=== PATIENT | male | born 1955 | race Caucasian/White ===

== ENCOUNTER → 2018-01-04 10:58 | Outpatient (CLI) | payer OTHER, SELFPAY ==
--- NOTE | 2018-01-04 | DI.NM.S_ITS ---
PROCEDURE: NM BONE 3 PHASE RADIOPHARMACEUTICAL: 20.9 mCi Tc-99m MDP IV. INDICATIONS: Presence of right artificial knee joint TECHNIQUE: Multiple bone scintigrams were obtained after intravenous injection of Tc-99m MDP, including flow, blood pool, and delayed images centered to the region of interest. COMPARISON: None. FINDINGS: The flow and blood pool images demonstrate subtle increased vascular activity to the right knee. There is photopenia in the right knee consistent with prior knee arthroplasty. Delayed images demonstrate foci of increased activity around right knee prosthesis, most pronounced in the medial aspect of titial plateau along the prosthesis and bone interface. Increased uptake in the left knee medial compartment is likely secondary to degenerative joint disease. IMPRESSION: 2. There is ight knee arthroplasty. Subtle increased vascular activity, as well as delayed uptake, is present along the medial aspect of the right knee at the prosthesis and tibial interface. Differential diagnosis include post surgical change versus early prosthesis loosening. Recommend radiographic and clinical correlation. 2. Degenerative joint disease in left knee. Dictated by: Marcie Donald M.D. on 01/04/2018 at 16:53 Approved by: Marcie Donald M.D. on 01/05/2018 at 11:06
== END ==
PROVIDERS: PCP Family Medicine; Visit Provider Specialist/Technologist Athletic Trainer
DX: M17.12 Unilateral primary osteoarthritis, left knee (principal); Z96.651 Presence of right artificial knee joint
CPT/HCPCS: 78315; A9503

== ENCOUNTER → 2020-01-19 11:32 | Outpatient (CLI) | payer OTHER, SELFPAY ==
--- NOTE | 2020-01-19 11:36 | DI.RAD.S_ITS ---
PROCEDURE: XR SHOULDER RT MIN 2V INDICATIONS: right shoulder pain TECHNIQUE: 3 views of the shoulder were acquired. COMPARISON: None. FINDINGS: Bones: No fractures or dislocations. No suspicious bony lesions. Mild degenerative changes present at the acromioclavicular and glenohumeral joints. Visualized ribs appear intact. Soft tissues: No suspicious soft tissue calcifications. IMPRESSION: Mild degenerative change. No acute radiographic findings. If pain persists, followup imaging in 5-7 days is recommended to exclude occult fracture. Dictated by: Namrata Lopez M.D. on 01/19/2020 at 12:18 Approved by: Namrata Lopze M.D. on 01/19/2020 at 12:19
== END ==
PROVIDERS: PCP Family Medicine; Referring Provider Physician Assistant; Visit Provider Physician Assistant
DX: M25.511 Pain in right shoulder (principal)
CPT/HCPCS: 73030

== ENCOUNTER → 2020-02-02 10:13 | Outpatient (CLI) | payer OTHER, SELFPAY ==
--- NOTE | 2020-02-02 | DI.RAD.S_ITS ---
PROCEDURE: XR CERVICAL SPINE 2V OR 3V INDICATIONS: CERVICAL RADICULOPATHY TECHNIQUE: 3 view(s) of the cervical spine were acquired. COMPARISON: None. FINDINGS: Bones: No fractures or dislocations to the C7 level. The lateral masses of C1 appear intact on the odontoid view. No suspicious bony lesions. Quda-qo-ogsvvozs degenerative change including intervertebral disc space narrowing and osteophytosis is present within the mid and lower cervical spine. Soft tissues: No prevertebral soft tissue swelling. IMPRESSION: Degenerative change. No acute radiographic findings. If there is continued pain, followup exam or additional imaging such as MRI or CT could be performed for further assessment. Dictated by: Namrata Lopez M.D. on 02/02/2020 at 14:30 Approved by: Namrata Lopez M.D. on 02/02/2020 at 14:30
== END ==
PROVIDERS: PCP Family Medicine; Referring Provider Family Medicine; Visit Provider Family Medicine
DX: M47.22 Other spondylosis with radiculopathy, cervical region (principal)
CPT/HCPCS: 72040

== ENCOUNTER → 2020-10-15 09:03 | Outpatient (CLI) | payer OTHER, SELFPAY ==
[2020-10-15 17:18] LABS: COVID19 -Nasal RAPID Negative (Negative)
== END ==
PROVIDERS: PCP Family Medicine; Referring Provider Specialist; Visit Provider Specialist
DX: Z20.822 Contact with and (suspected) exposure to COVID-19 (principal)
CPT/HCPCS: 87635; C9803

== ENCOUNTER 2020-10-16 08:27 | Day surgery (SDC) | payer OTHER, SELFPAY ==
[2020-10-16 08:40] VITALS: BMI 27.9
[2020-10-16] MEDS: LACTATED RINGERS 1,000 ML 200 ML IV (08:53)
[2020-10-16 08:56] VITALS: BP 150/88; PULSE 64; RESP 16; TEMP 36.7; O2SAT 97
--- NOTE | 2020-10-16 09:31 | PM.HP.1 ---
History of Present Illness History of Present Illness Date Patient Seen: 10/16/20 Chief complaint: SCREENING COLONOSCOPY Narrative: Patient is a gentleman here for screening colonoscopy. He had a colon resection for diverticulitis performed about 13 years ago. Patient History Medical History Family history of aneurysm Family history of suicide H/O diverticulitis of colon Screening for cholesterol level Screening for colon cancer Screening for diabetes mellitus Screening for prostate cancer Surgical History S/P partial colectomy S/P TKR (total knee replacement) Family & Social History Family History Grandmother Colon cancer Social History: household members spouse Tobacco & Substance use: Smoking Status Never smoker alcohol intake current alcohol intake frequency 0-2 drinks per day Substance Use Type does not use Meds Home Medications and Allergies Home Medications Medication Instructions Recorded Confirmed Type naproxen 500 mg tablet 500 mg PO BID PRN 10/16/20 10/16/20 History Allergies Allergy/AdvReac Type Severity Reaction Status Date / Time No Known Allergies Allergy Uncoded 10/16/20 08:38 Review of Systems Review of Systems ROS: Yes All systems reviewed with the patient and are negative except as otherwise documented Exam Vital Signs (past 8 hours): - 10/16/20 08:56 Temperature 98.0 F Pulse Rate 64 Respiratory Rate 16 Blood Pressure 150/88 H Pulse Oximetry 97 Oxygen Delivery Method Room Air Narrative Exam Narrative: Pleasant cooperative patient no apparent distress. Lungs are clear to auscultation. No rales or rhonchi. Heart regular rate and rhythm no murmur gallop. Abdomen is soft nontender without mass. No obvious hernias. Patient is alert and oriented x3. Assessment & Plan Assessment & Plan narrative: The patient for a screening colonoscopy. I have discussed the procedure with them. Risks of bleeding, perforation which would necessitate major operation, failure to find remove all lesions, the potential tattoo were all discussed. All questions were answered. They wished to proceed.
--- NOTE | 2020-10-16 09:34 | PM.PREOP ---
Pre-operative Note COVID-19 COVID-19 status: Negative Result date/Date tested (Pos, Neg/Pending): 10/15/20 Interval Note History & Physical reviewed/Exam performed by Physician: Yes Changes to H&P: No ASA Class (for procedural sedation): I
--- NOTE | 2020-10-16 09:53 | PM.OP.ENDO ---
Operative Date/Time/Diagnoses Date of procedure: 10/16/20 Time of procedure: 09:55 Pre-op diagnosis: Screening exam. Personal history of polyps. History of sigmoid resection for diverticulitis. Last colonoscopy April 2014 years ago. Post-op diagnosis: same (Feliz diverticulosis.) Procedure & Clinicians Study performed: Colonoscopy Same procedure as scheduled: Yes Indications: Screening Surgeon: Davis Tolentino Procedure Notes SCOAP/Timeout: Performed Procedure in detail: The patient was placed in the left lateral decubitus position and underwent IV sedation directed by the surgeon consisting of fentanyl and Versed. Digital exam was unremarkable. His prostate is slightly enlarged. The scope was inserted and advanced through the rectum into the descending, transverse, and ascending colon. The sigmoid appeared to be surgically absent. Anastomosis was noted at 20 cm and appeared to be an end-to-side anastomosis. The blind end had diverticuli without any inflammation. Diverticuli were noted throughout the colon with decreasing frequency is I moved to the right.. The cecum was reached identified by the ileocecal valve and the appendiceal opening. The ileocecal valve was successfully cannulated. The terminal ileum was normal in appearance except for some mild petechiae that may be prep related. There were no lesions seen.. The scope was gradually brought out. Though Polyps were found. The scope ultimately was retroflexed in the rectum. The appearance was remarkable for some minor hemorrhoidal disease. No ulceration.. The scope was removed and the patient tolerated the procedure well. Scope withdrawal time: 6 minutes Sedation minutes: 13 Specimen(s): none sent Complications: none Post-procedure Recommendations: Colonscopy in 5 years (Due to your history of polyps.) Follow up: as needed Disposition: PACU
[2020-10-16 09:54] VITALS: BP 115/70; PULSE 62; RESP 12; TEMP 36.7; O2SAT 95
[2020-10-16] MEDS: MIDAZOLAM 5 MG/5 ML VIAL IV (09:54)
[2020-10-16] MEDS: fentaNYL 250 MCG/5 ML INJ IV (09:55)
[2020-10-16 10:03] VITALS: BP 125/80; PULSE 56; RESP 12; O2SAT 95
[2020-10-16 10:15] VITALS: BP 123/87; PULSE 57; RESP 10; TEMP 37; O2SAT 97
[2020-10-16 10:50] VITALS: BP 100/77; PULSE 60; RESP 16; TEMP 36.3; O2SAT 97
== END 2020-10-16 10:55 | disposition home or self-care (01) ==
PROVIDERS: PCP Family Medicine; Referring Provider Specialist; Visit Provider Specialist
PROC: 0DJD8ZZ Inspection of Lower Intestinal Tract, Via Natural or Artificial Opening Endoscopic (ICD-10-PCS; CPT 45378; principal; 2020-10-16 09:15)
DX: Z12.11 Encounter for screening for malignant neoplasm of colon (principal); Z86.010 Personal history of colon polyps; K57.30 Diverticulosis of large intestine without perforation or abscess without bleeding; Z90.49 Acquired absence of other specified parts of digestive tract; Z87.19 Personal history of other diseases of the digestive system
CPT/HCPCS: 45378; 99152; J2250; J3010

== ENCOUNTER → 2021-01-15 08:16 | Outpatient (CLI) | payer OTHER, SELFPAY ==
[2021-01-15 18:57] LABS: Alanine Aminotransferase 23 IU/L (<50); Albumin Globulin Ratio 1.7 (1.0-2.8); Alkaline Phosphatase 62 U/L (38-126); Aspartate Aminotransferase 30 IU/L (17-59); BUN Creatinine Ratio 27.1 (6-22); Bilirubin Total 0.7 mg/dL (0.2-1.3); Blood Urea Nitrogen 19 mg/dL (9-20); Calcium 9.6 mg/dL (8.4-10.2); Carbon Dioxide 32 mmol/L (22-32); Chloride 102 mmol/L (98-107); Estimated Glomerular Filt Rate > 60.0 mL/min (>60); Globulin 2.3 g/dL (1.7-4.1); Glucose 92 mg/dL (80-110); HEMOLYSIS 19 (0-50); Potassium 4.3 mmol/L (3.4-5.1); Sodium 138 mmol/L (137-145); Total Protein 6.3 g/dL (6.3-8.2)
[2021-01-15 19:28] LABS: Prostate Specific Antigen Scrn 2.15 ng/mL (0.1-4.0)
== END ==
PROVIDERS: PCP Family Medicine; Visit Provider Family Medicine
DX: Z12.5 Encounter for screening for malignant neoplasm of prostate (principal); E55.9 Vitamin D deficiency, unspecified; I10 Essential (primary) hypertension
CPT/HCPCS: 80053; 82306; G0103

== ENCOUNTER → 2021-04-01 09:05 | Outpatient (CLI) | payer OTHER, SELFPAY ==
[2021-04-01 20:21] LABS: COVID19 - ORCAS (NP or Nasal) Negative (Negative)
== END ==
PROVIDERS: PCP Family Medicine; Referring Provider Family Medicine; Visit Provider Family Medicine
DX: Z20.822 Contact with and (suspected) exposure to COVID-19 (principal)
CPT/HCPCS: U0003

== ENCOUNTER → 2022-01-10 12:20 | Outpatient (CLI) | payer MEDICARE, SELFPAY ==
--- NOTE | 2022-01-10 13:08 | DI.MRI.S_ITS ---
PROCEDURE: MR LUMBAR SPINE WO CON INDICATIONS: lumbar radiculopathy TECHNIQUE: Noncontrast sagittal T1 spin echo and T2 fast echo, sagittal STIR, and T2 fast spin echo through the lumbar spine. In cases with scoliosis, additional coronal T2 fast spin echo may be performed. COMPARISON: [facility], CT, ABDOMEN/PELVIS WITH CONTRAST, 06/10/2015, 19:29. [facility] ([place]), CR, XR LUMBAR SPINE 2-3V, 11/17/2021, 15:43. [facility], NM, NM BONE 3 PHASE, 01/04/2018, 11:18. FINDINGS: Image quality: This examination is limited by involuntary motion artifact. Alignment and Curvature: There is normal bony alignment. Bone Marrow: Generalized marrow replacement can be seen, with loss of the normal fatty marrow signal. Spinal Cord: Conus medullaris terminates at the L1 level. Visualized cord demonstrates normal signal and size. Paraspinous Soft Tissues: No paravertebral masses. An apparent lipoma can be seen along the midline, centered at the L1 level, measuring 6.5 cm craniocaudal, as on series 3, image 10. T12-L1: Normal appearance. L1-L2: The disc height and disc signal are well-preserved. Mild disc bulge is seen, which is eccentric to the right. Mild to moderate facet hypertrophy is seen. Moderate bilateral neural foraminal narrowing is seen. Mild central canal narrowing is seen. L2-L3: Oqez-pp-lnbrjnue loss of disc height and disc signal can be seen. At least moderate disc bulge is seen, with a central disc protrusion. Moderate facet joint hypertrophy is seen. There is moderate to severe bilateral neural foraminal narrowing seen, with an associated a degree of compression seen upon the exiting nerve roots. Moderate to severe central canal narrowing is also seen. L3-L4: Mild loss of disc height is seen. Loss of disc signal is seen. Mild facet joint hypertrophy is seen. There is moderate to severe right-sided and at least moderate left-sided neural foraminal narrowing. There is a degree of compression seen upon the exiting nerve roots. At least moderate central canal narrowing is seen. L4-L5: Iqtz-mj-oqtmlaum loss of disc height and disc signal can be seen. At least moderate disc bulge is seen, which is eccentric to the right. There is a superimposed central disc protrusion. Moderate facet joint hypertrophy is seen. There is moderate to severe right-sided and at least moderate left-sided neural foraminal narrowing. There is a degree of compression seen upon the exiting nerve roots. Moderate central canal narrowing is seen. L5-S1: Mild loss of disc height is seen. Loss of disc signal is seen. Mild generalized disc bulge is seen. There is a superimposed central disc protrusion. Mild facet joint hypertrophy is seen. There is at least moderate bilateral neural foraminal narrowing seen. There is a degree of compression seen upon the exiting nerve roots. Mild central canal narrowing is seen. IMPRESSION: Multiple levels of lumbar spine degenerative change are seen, which are overall worst at the L2-L3 level. Several sites of significant neural foraminal narrowing can be seen, with associated exiting nerve root compression. There is loss of the normal fatty marrow signal. Please correlate with known patient history for a potential marrow infiltrating process. Incidental note is made of: Apparent subcutaneous lipoma Dictated by: Davonte Archer M.D. on 01/10/2022 at 14:25 Approved by: Davonte Archer M.D. on 01/10/2022 at 14:31
== END ==
PROVIDERS: PCP Family Medicine; Referring Provider Family Medicine; Visit Provider Family Medicine
DX: M47.26 Other spondylosis with radiculopathy, lumbar region (principal); M47.27 Other spondylosis with radiculopathy, lumbosacral region; M48.061 Spinal stenosis, lumbar region without neurogenic claudication; M48.07 Spinal stenosis, lumbosacral region
CPT/HCPCS: 72148

== ENCOUNTER → 2022-02-09 07:03 | Outpatient (CLI) | payer MEDICARE, SELFPAY ==
[2022-02-09 21:07] LABS: COVID19 - ORCAS (NP or Nasal) Negative (Negative)
== END ==
PROVIDERS: PCP Family Medicine; Visit Provider Physician Assistant
DX: Z20.822 Contact with and (suspected) exposure to COVID-19 (principal); Z01.812 Encounter for preprocedural laboratory examination
CPT/HCPCS: C9803; U0003

== ENCOUNTER → 2022-04-09 11:07 | Outpatient (CLI) | payer MEDICARE, SELFPAY ==
--- NOTE | 2022-04-09 11:09 | DI.MRI.S_ITS ---
PROCEDURE: MR CERVICAL SPINE WO CON INDICATIONS: cervical radiculopathy and left UE loss of strength TECHNIQUE: Noncontrast sagittal T1 spin echo and T2 fast spin echo, sagittal STIR, foraminal oblique sagittal T2 fast spin echo, and axial gradient echo or T2 fast spin echo through the cervical spine. COMPARISON: None. FINDINGS: Image quality: Excellent. Alignment and Curvature: There is normal bony alignment. Bone Marrow: Marrow demonstrates normal overall signal. Spinal Cord: Visualized spinal cord has normal size and signal. No cerebellar tonsillar herniation. Paraspinous Soft Tissues: No paravertebral masses. Prevertebral soft tissues are normal in thickness. C2-C3: Normal appearance. C3-C4: Disc space narrowing and posterior disc osteophyte complex combines with hypertrophic uncovertebral joints results in moderate central stenosis with flattening the ventral surface of the cord. No cord edema. Moderate bilateral foraminal stenosis, right greater than left C4-C5: Disc space narrowing with posterior disc osteophyte complex and hypertrophic uncovertebral joints results in moderate to severe central stenosis with indentation of ventral surface of the cord. No cord edema. Severe right and mild left foraminal stenosis C5-C6: Disc space narrowing with posterior disc osteophyte complex and hypertrophic uncovertebral joints results in moderate to severe central stenosis with flattening the ventral surface of the cord. Moderate bilateral foraminal stenosis present. C6-C7: Disc space narrowing with posterior disc osteophyte complex and hypertrophic facet joints. Moderate central stenosis. Severe left and moderate right foraminal stenosis C7-T1: Disc space narrowing posterior disc osteophyte complex results in mild central and bilateral foraminal stenosis IMPRESSION: 1. Multilevel degenerative disc disease and arthropathy results in varying degrees of central and foraminal stenosis including at least moderate central stenosis C3-4 through C6-7, worse at C4-5 Approved by: Dickson Dee M.D. on 04/09/2022 at 11:39
== END ==
PROVIDERS: PCP Family Medicine; Referring Provider Family Medicine; Visit Provider Family Medicine
DX: M50.11 Cervical disc disorder with radiculopathy, high cervical region (principal); M48.02 Spinal stenosis, cervical region; M47.22 Other spondylosis with radiculopathy, cervical region
CPT/HCPCS: 72141

== ENCOUNTER → 2022-04-18 06:56 | Outpatient (CLI) | payer MEDICARE, SELFPAY ==
[2022-04-18 21:28] LABS: COVID19 - ORCAS (NP or Nasal) Negative (Negative)
== END ==
PROVIDERS: PCP Family Medicine; Visit Provider Family Medicine
DX: Z01.812 Encounter for preprocedural laboratory examination (principal); Z20.822 Contact with and (suspected) exposure to COVID-19
CPT/HCPCS: C9803; U0003

== ENCOUNTER → 2022-08-15 11:25 | Outpatient (CLI) | payer MEDICARE, SELFPAY ==
[2022-08-15 20:13] LABS: Cholesterol 187 mg/dL (140-199); Glucose 96 mg/dL (80-110); HDL Cholesterol 72 mg/dL (40-60); LDL Cholesterol Calculated 92 mg/dL (<100); Triglycerides 117 mg/dL (35-150)
[2022-08-15 20:43] LABS: Prostate Specific Antigen Scrn 3.32 ng/mL (0.1-4.0)
[2022-08-16 19:43] LABS: Hep C Virus Ab w/Reflex Quant NEGATIVE s/c (NEGATIVE)
== END ==
PROVIDERS: PCP Family Medicine; Visit Provider Family Medicine
DX: Z00.00 Encounter for general adult medical examination without abnormal findings (principal); Z13.1 Encounter for screening for diabetes mellitus; I10 Essential (primary) hypertension; Z12.5 Encounter for screening for malignant neoplasm of prostate; Z11.59 Encounter for screening for other viral diseases; Z12.11 Encounter for screening for malignant neoplasm of colon; Z13.220 Encounter for screening for lipoid disorders
CPT/HCPCS: 80061; 82947; 86803; G0103

== ENCOUNTER → 2022-08-26 10:13 | Outpatient (CLI) | payer MEDICARE, SELFPAY ==
--- NOTE | 2022-08-26 10:15 | DI.US.S_ITS ---
PROCEDURE: US ABD AORTA ANEURYSM SCREEN INDICATIONS: FAMILY HISTORY AORTIC ANEURYSM MOTHER AND FATHER TECHNIQUE: Real-time scanning was performed of the aorta and proximal common iliac arteries, with image documentation. COMPARISON: None. FINDINGS: Aorta: Abdominal aorta is normal in caliber throughout its length. Proximal aorta measures 2.1 cm. Mid aorta measures 1.7 cm. Distal aorta measures 1.3 cm. Iliacs: Proximal common iliac arteries are normal in caliber. Right common iliac artery measures 1.2 cm. Left common iliac artery measures 0.9 cm. IMPRESSION: Negative screening abdominal aortic ultrasound. No evidence of aneurysm. Dictated by: Dawit Cannon M.D. on 08/26/2022 at 11:12 Approved by: Dawit Cannon M.D. on 08/26/2022 at 11:13
== END ==
PROVIDERS: PCP Family Medicine; Referring Provider Family Medicine; Visit Provider Family Medicine
DX: Z82.49 Family history of ischemic heart disease and other diseases of the circulatory system (principal)
CPT/HCPCS: 76706

== ENCOUNTER → 2023-02-06 10:07 | Outpatient (CLI) | payer OTHER, MEDICARE, SELFPAY ==
[2023-02-06 19:29] LABS: Add Manual Diff / Slide Review NO; Basophils Absolute Auto 100 /uL (0-100); Basophils Percent Auto 0.9 % (0-2); Eosinophils Absolute Auto 100 /uL (0-450); Eosinophils Percent Auto 1.7 % (2-4); Hematocrit 40.7 % (41-53); Hemoglobin 14.1 g/dL (13.5-17.5); Lymphocytes Absolute Auto 1000 /uL (1100-4500); Lymphocytes Percent Auto 17.9 % (25-40); Mean Corpuscular HGB Conc 34.6 % (30-36); Mean Corpuscular Hemoglobin 31.3 PG (26-34); Mean Corpuscular Volume 90.6 fL (80-100); Monocytes Absolute Auto 500 /uL (0-900); Monocytes Percent Auto 8.4 % (3-14); Neutrophils Absolute Auto 3900 /uL (1500-7000); Neutrophils Percent Auto 71.1 % (50-75); Platelet Count 190 X10^3/uL (150-400); Red Blood Cell Count 4.49 X10^6/uL (4.5-5.9); Red Cell Distribution Width 13.6 % (11.6-14.8); White Blood Cell Count 5.4 X10^3/uL (4.5-11.0)
[2023-02-06 19:54] LABS: Alanine Aminotransferase 28 IU/L (<50); Albumin Globulin Ratio 1.7 (1.0-2.8); Alkaline Phosphatase 69 U/L (38-126); Aspartate Aminotransferase 36 IU/L (17-59); BUN Creatinine Ratio 37.3 (6-22); Bilirubin Total 0.7 mg/dL (0.2-1.3); Blood Urea Nitrogen 22 mg/dL (9-20); Calcium 10.5 mg/dL (8.4-10.2); Carbon Dioxide 29 mmol/L (22-32); Chloride 101 mmol/L (98-107); Cholesterol 174 mg/dL (140-199); Estimated Glomerular Filt Rate > 60 mL/min (>60); Globulin 2.3 g/dL (1.7-4.1); Glucose 100 mg/dL (80-110); HDL Cholesterol 45 mg/dL (40-60); HEMOLYSIS 49 (0-50); LDL Cholesterol Calculated 98 mg/dL (<100); Potassium 4.1 mmol/L (3.4-5.1); Sodium 137 mmol/L (137-145); Total Protein 6.3 g/dL (6.3-8.2); Triglycerides 156 mg/dL (35-150)
[2023-02-06 20:02] LABS: Erythrocyte Sedimentation Rate 8 MM/HR (0-15)
[2023-02-06 20:05] LABS: Vitamin D 25 Hydroxy (D3) 30.1 ng/mL (30.0-100.0)
[2023-02-06 20:23] LABS: TSH w/ Reflex to FT4 0.69 uIU/mL (0.47-4.68)
[2023-02-06 20:36] LABS: Vitamin B12 687 pg/mL (239-931)
== END ==
PROVIDERS: PCP Family Medicine; Visit Provider Family Medicine
DX: I10 Essential (primary) hypertension (principal); E55.9 Vitamin D deficiency, unspecified; R41.89 Other symptoms and signs involving cognitive functions and awareness; R53.83 Other fatigue; R41.3 Other amnesia
CPT/HCPCS: 80053; 80061; 82306; 82607; 84443; 85025; 85651

== ENCOUNTER → 2023-05-16 10:40 | Outpatient (CLI) | payer OTHER, SELFPAY ==
[2023-05-16 19:44] LABS: Alanine Aminotransferase 26 IU/L (<50); Albumin 4.3 g/dL (3.5-5.0); Albumin Globulin Ratio 1.6 (1.0-2.8); Alkaline Phosphatase 60 U/L (38-126); Aspartate Aminotransferase 30 IU/L (17-59); BUN Creatinine Ratio 24.1 (6-22); Bilirubin Total 0.7 mg/dL (0.2-1.3); Blood Urea Nitrogen 14 mg/dL (9-20); Calcium 10.3 mg/dL (8.4-10.2); Carbon Dioxide 31 mmol/L (22-32); Chloride 101 mmol/L (98-107); Estimated Glomerular Filt Rate > 60 mL/min (>60); Globulin 2.7 g/dL (1.7-4.1); Glucose 95 mg/dL (80-110); HEMOLYSIS < 15 (0-50); Sodium 137 mmol/L (137-145)
[2023-05-16 20:10] LABS: Prostate Specific Antigen Scrn 2.56 ng/mL (0.1-4.0)
[2023-05-16 20:23] LABS: Add Manual Diff / Slide Review NO; Basophils Absolute Auto 100 /uL (0-100); Basophils Percent Auto 0.8 % (0-2); Eosinophils Absolute Auto 300 /uL (0-450); Eosinophils Percent Auto 4.9 % (2-4); Hematocrit 43.6 % (41-53); Hemoglobin 14.9 g/dL (13.5-17.5); Lymphocytes Absolute Auto 1300 /uL (1100-4500); Lymphocytes Percent Auto 19.9 % (25-40); Mean Corpuscular HGB Conc 34.1 % (30-36); Mean Corpuscular Hemoglobin 31.9 PG (26-34); Mean Corpuscular Volume 93.3 fL (80-100); Monocytes Absolute Auto 500 /uL (0-900); Neutrophils Absolute Auto 4500 /uL (1500-7000); Neutrophils Percent Auto 67.4 % (50-75); Platelet Count 186 X10^3/uL (150-400); Red Blood Cell Count 4.67 X10^6/uL (4.5-5.9); Red Cell Distribution Width 14.5 % (11.6-14.8); White Blood Cell Count 6.6 X10^3/uL (4.5-11.0)
== END ==
PROVIDERS: PCP Family Medicine; Visit Provider Family Medicine
DX: Z12.5 Encounter for screening for malignant neoplasm of prostate (principal); E83.52 Hypercalcemia; I10 Essential (primary) hypertension; R53.83 Other fatigue; E55.9 Vitamin D deficiency, unspecified
CPT/HCPCS: 80053; 85025; G0103

== ENCOUNTER → 2023-05-29 11:50 | Outpatient (CLI) | payer OTHER, SELFPAY ==
[2023-05-29 20:46] LABS: Vitamin D 25 Hydroxy (D3) 64.1 ng/mL (30.0-100.0)
[2023-06-01 08:36] LABS: Calcium 9.8 mg/dL (8.6-10.2); Parathyroid Hormone, Intact 42 pg/mL (15-65)
[2023-06-05 09:20] LABS: Albumin 3.7 g/dL (2.9-4.4); Alpha-1-Globulin 0.2 g/dL (0.0-0.4); Alpha-2-Globulin 0.6 g/dL (0.4-1.0); Gamma Globulin 0.8 g/dL (0.4-1.8); Globulin Total 2.4 g/dL (2.2-3.9); Protein, Total 6.1 g/dL (6.0-8.5)
== END ==
PROVIDERS: PCP Family Medicine; Visit Provider Family Medicine
DX: E83.52 Hypercalcemia (principal); E55.9 Vitamin D deficiency, unspecified
CPT/HCPCS: 82306; 82310; 83970; 84155; 84165

== ENCOUNTER → 2024-01-09 08:51 | Outpatient (CLI) | payer OTHER, SELFPAY ==
--- NOTE | 2024-01-09 08:54 | DI.RAD.S_ITS ---
PROCEDURE: XR TIBIA FIBULA LT 2V INDICATIONS: suspect tibial plateau fx left leg -- from injury 1 week ago TECHNIQUE: 2 views of the tibia and fibula were acquired. COMPARISON: None. FINDINGS: Bones: No fractures or dislocations. No suspicious bony lesions. Soft tissues: No suspicious soft tissue calcifications or masses. IMPRESSION: No acute bony abnormality. Dictated by: Florencio Jones M.D. on 01/09/2024 at 9:55 Approved by: Florencio Jones M.D. on 01/09/2024 at 9:56
--- NOTE | 2024-01-09 08:54 | DI.RAD.S_ITS ---
PROCEDURE: XR KNEE LT 3V INDICATIONS: fell left knee injury 1 week ago . suspect tibial plat fx TECHNIQUE: 3 views of the knee were acquired. COMPARISON: None. FINDINGS: Bones: No fractures or dislocations. No suspicious bony lesions. Tricompartmental joint space narrowing with associated osteophytosis. Subchondral sclerosis of the medial tibial plateau. Soft tissues: No joint effusion. No suspicious soft tissue calcifications. IMPRESSION: No definite fracture or lipohemarthrosis. If there remains a high clinical concern, consider cross-sectional imaging to exclude an occult injury. Dictated by: Florencio Jones M.D. on 01/09/2024 at 9:52 Approved by: Florencio Jones M.D. on 01/09/2024 at 9:55
--- NOTE | 2024-01-09 08:54 | DI.MRI.S_ITS ---
PROCEDURE: MR LUMBAR SPINE WO CON INDICATIONS: compression fx after recent fall L2 superior end plate TECHNIQUE: Noncontrast sagittal T1 spin echo and T2 fast echo, sagittal STIR, and T2 fast spin echo through the lumbar spine. In cases with scoliosis, additional coronal T2 fast spin echo may be performed. COMPARISON: [facility] ([place]), CR, XR LUMBAR SPINE 2-3V, 12/13/2023, 10:45. [facility], MR, MR LUMBAR SPINE WO CON, 01/10/2022, 13:02. FINDINGS: Image quality: Excellent. Alignment and Curvature: There is normal bony alignment. Bone Marrow: Mild compression fracture at the superior endplate of the L2 vertebral body with associated osseous edema. No retropulsion of osseous fragments is seen. No other osseous edema is seen. No suspicious marrow replacing mass. Spinal Cord: Conus medullaris terminates at the L1 level. Visualized cord demonstrates normal signal and size. Paraspinous Soft Tissues: Subcutaneous lipoma is seen in the midline superficial to the T12 and L1 spinous processes. The lipoma measures approximately 3.4 x 1.5 by 6.4 cm, not significantly changed when compared to the exam from 01/10/2022. T12-L1: No significant spinal canal stenosis or neural foraminal narrowing. L1-L2: Disc desiccation and mild circumferential disc bulging as well as mild bilateral facet hypertrophy. Findings result in mild narrowing of the spinal canal and moderate bilateral neural foraminal narrowing that does not appear significantly changed when compared to the MRI from 01/10/2022. L2-L3: Disc desiccation and circumferential disc bulging as well as bilateral facet hypertrophy and buckling of the ligamentum flavum. Findings result in moderate narrowing of the spinal canal with effacement of the lateral recesses and moderate bilateral neural foraminal narrowing that is slightly worse on the left. Findings do not appear significantly changed when compared to the MRI from 01/10/2022. L3-L4: Disc desiccation and circumferential disc bulging as well as bilateral facet hypertrophy, buckling of the ligamentum flavum, and epidural lipomatosis. Findings result in moderate narrowing of the spinal canal with effacement of the lateral recesses as well as moderate to severe right and moderate left neural foraminal narrowing. Findings do not appear significantly changed. L4-L5: Disc desiccation and circumferential disc bulging as well as moderate bilateral facet hypertrophy and mild buckling of the ligamentum flavum. Findings result in ivrm-lm-[id number] narrowing of the spinal canal with crowding of the lateral recesses as well as moderate to severe bilateral neural foraminal narrowing. Findings do not appear significantly changed. L5-S1: Disc desiccation and circumferential disc bulging as well as bilateral facet hypertrophy. Findings result in at least moderate narrowing of the bilateral neural foramina without significant spinal canal stenosis. IMPRESSION: 1. Acute compression fracture of the L2 vertebral body with mild loss of vertebral body height and associated osseous edema. No retropulsion of osseous fragments. 2. Multilevel moderate to severe degenerative disc disease and facet hypertrophy as described in detail in the body of the report, which do not appear significantly changed in extent when compared to the MRI from 01/10/2022. 3. Incidental note is again made of a stable subcutaneous lipoma posteriorly at the T12 to L1 levels. Approved by: Saravanan Cunningham M.D. on 01/09/2024 at 11:22
== END ==
PROVIDERS: PCP Family Medicine; Referring Provider Family Medicine; Visit Provider Physician Assistant Medical
DX: S32.020A Wedge compression fracture of second lumbar vertebra, initial encounter for closed fracture (principal); M25.562 Pain in left knee; M51.360 Other intervertebral disc degeneration, lumbar region with discogenic back pain only; M51.370 Other intervertebral disc degeneration, lumbosacral region with discogenic back pain only; M47.816 Spondylosis without myelopathy or radiculopathy, lumbar region; M47.817 Spondylosis without myelopathy or radiculopathy, lumbosacral region; D17.79 Benign lipomatous neoplasm of other sites; W19.XXXA Unspecified fall, initial encounter
CPT/HCPCS: 72148; 73562; 73590

== ENCOUNTER → 2024-02-16 12:54 | Outpatient (CLI) | payer OTHER, SELFPAY ==
--- NOTE | 2024-02-16 12:55 | DI.MRI.S_ITS ---
PROCEDURE: MR KNEE LT WO CON INDICATIONS: persistent left knee pain s/p fall and twist injury. D TECHNIQUE: Noncontrast sagittal PD fast spin echo and T2 fast spin echo with fat saturation, sagittal 3-D FLASH with fat saturation; coronal T1 spin echo and PD fast spin echo with fat saturation, and axial PD fast spin echo with fat saturation through the knee. COMPARISON: [facility], CR, XR KNEE LT 3V, 01/09/2024, 9:08. FINDINGS: Image quality: Excellent. Anterior cruciate ligament: Moderate mucoid degeneration of the anterior cruciate ligament. Posterior cruciate ligament: Moderate intrasubstance degeneration in the posterior cruciate ligament. Medial collateral ligament: Intact. Lateral collateral ligament: Intact. Medial meniscus: Diffuse labral degeneration and maceration with a diminutive appearance of the meniscal body, which is extruded beyond the femorotibial joint line. Suspected radial component at the junction of the anterior horn and body. Lateral meniscus: Mild intrasubstance degeneration without acute tearing. Medial and lateral tendons: The semimembranosus tendon insertions appear intact. Visualized portions of the pes anserinus tendons appear normal. The popliteus tendon is intact. Iliotibial band appears normal. Anterior structures: The quadriceps and patellar tendons appear intact. No patellar subluxation. No femoral trochlear dysplasia or ventral trochlear prominence. No edema in the infrapatellar fat pad. Bones and cartilage: Mild osseous edema at the far posterior portion of the lateral tibial plateau. Chronic cystic changes and edema in the central tibial plateau near the anterior cruciate ligament insertion. Medial femorotibial cartilage: Diffuse full thickness cartilage loss throughout the weight-bearing portion of the medial femorotibial compartment with subchondral edema, marginal osteophytes, and mild remodeling of the articular surfaces. Lateral femorotibial cartilage: Deep cartilage fissuring at the posterior weight-bearing portion of the lateral femoral condyle. Marginal osteophytes are present. Patellofemoral cartilage: Full-thickness cartilage loss at the medial femoral trochlea with mild subchondral cystic changes and marginal osteophyte formation. Soft tissues: Moderate joint effusion. Small medial popliteal cyst. Prominent fluid is seen in the deep infrapatellar bursa. IMPRESSION: 1. Small area of osseous edema at the far posterior portion of the lateral tibial plateau suspicious for a small osseous contusion versus secondary to overlying cartilage loss. 2. Diffuse full thickness cartilage loss throughout the weight-bearing portion of the medial femorotibial compartment with subchondral edema and mild remodeling of the articular surfaces. A small area of full-thickness cartilage loss patellofemoral compartment at the medial femoral trochlea. There is deep cartilage fissuring in the lateral femorotibial compartment. Tricompartmental marginal osteophytes. 3. Diffuse complex degenerative tearing and maceration of the medial meniscus with a suspected radial component at the junction of the anterior horn and body. 4. Mild intrasubstance degeneration in the lateral meniscus without a discrete tear. 5. Moderate mucoid degeneration of the anterior cruciate ligament and posterior cruciate ligament without acute ligament tearing seen. 6. Moderate deep infrapatellar bursal effusion or bursitis. 7. Moderate joint effusion. Small medial popliteal cyst. Approved by: Saravanan Cunningham M.D. on 02/17/2024 at 20:58
== END ==
PROVIDERS: PCP Family Medicine; Referring Provider Neurological Surgery; Visit Provider Physician Assistant
DX: S83.232A Complex tear of medial meniscus, current injury, left knee, initial encounter (principal); M25.562 Pain in left knee; M25.462 Effusion, left knee; M71.22 Synovial cyst of popliteal space [Baker], left knee; W19.XXXA Unspecified fall, initial encounter
CPT/HCPCS: 73721

== ENCOUNTER → 2024-06-06 09:59 | Outpatient (CLI) | payer OTHER, SELFPAY ==
[2024-06-06 20:54] LABS: Add Manual Diff / Slide Review NO; Basophils Absolute Auto 0 /uL (0-100); Basophils Percent Auto 0.6 % (0-2); Eosinophils Absolute Auto 100 /uL (0-450); Eosinophils Percent Auto 1.9 % (2-4); Hematocrit 45.1 % (41-53); Hemoglobin 15.2 g/dL (13.5-17.5); Lymphocytes Absolute Auto 1300 /uL (1100-4500); Lymphocytes Percent Auto 22.1 % (25-40); Mean Corpuscular HGB Conc 33.8 % (30-36); Mean Corpuscular Hemoglobin 30.8 PG (26-34); Monocytes Absolute Auto 500 /uL (0-900); Monocytes Percent Auto 7.9 % (3-14); Neutrophils Absolute Auto 3900 /uL (1500-7000); Neutrophils Percent Auto 67.5 % (50-75); Platelet Count 222 X10^3/uL (150-400); Red Blood Cell Count 4.96 X10^6/uL (4.5-5.9); Red Cell Distribution Width 13.2 % (11.6-14.8); White Blood Cell Count 5.7 X10^3/uL (4.5-11.0)
[2024-06-06 21:08] LABS: BUN Creatinine Ratio 21.3 (6-22); Blood Urea Nitrogen 16 mg/dL (9-20); Calcium 10.2 mg/dL (8.4-10.2); Carbon Dioxide 28 mmol/L (22-32); Chloride 99 mmol/L (98-107); Cholesterol 195 mg/dL (140-199); Estimated Glomerular Filt Rate > 60 mL/min (>60); Glucose 98 mg/dL (80-110); HDL Cholesterol 39 mg/dL (40-60); HEMOLYSIS 17 (0-50); LDL Cholesterol Calculated 134 mg/dL (<100); Potassium 4.3 mmol/L (3.4-5.1); Sodium 136 mmol/L (137-145); Triglycerides 112 mg/dL (35-150)
[2024-06-06 21:37] LABS: Prostate Specific Antigen Scrn 2.93 ng/mL (0.1-4.0)
[2024-06-06 21:40] LABS: TSH w/ Reflex to FT4 0.81 uIU/mL (0.47-4.68)
== END ==
PROVIDERS: PCP Family Medicine; Visit Provider Family Medicine
DX: Z13.6 Encounter for screening for cardiovascular disorders (principal); Z13.1 Encounter for screening for diabetes mellitus; Z13.220 Encounter for screening for lipoid disorders; Z12.5 Encounter for screening for malignant neoplasm of prostate; R53.83 Other fatigue; I10 Essential (primary) hypertension; E83.52 Hypercalcemia; R68.82 Decreased libido
CPT/HCPCS: 80048; 80061; 84402; 84403; 84443; 85025; G0103

== ENCOUNTER → 2024-07-25 08:53 | Outpatient (CLI) | payer OTHER, SELFPAY ==
--- NOTE | 2024-07-25 08:55 | DI.MRI.S_ITS ---
PROCEDURE: MR LUMBAR SPINE WO CON INDICATIONS: LUMBAR STENOSIS TECHNIQUE: Noncontrast sagittal T1 spin echo and T2 fast echo, sagittal STIR, and T2 fast spin echo through the lumbar spine. In cases with scoliosis, additional coronal T2 fast spin echo may be performed. COMPARISON: [facility], MR, MR LUMBAR SPINE WO CON, 01/09/2024, 9:27. FINDINGS: Image quality: Excellent Mild levoscoliosis lumbar spine, centered at L4. Grade 1 anterolisthesis of L5 on S1. Mild superior endplate fracture of L2, chronic, grossly unchanged in disc height in comparison to prior exam. Multilevel disc desiccation disc bulge. There is a left lateral disc osteophyte complex at T12-L1, with interval development of marrow edema, degenerative. Additional multilevel mild fibrovascular end plate change. Vertebral hemangioma in T10 vertebral body, partially visualized. The conus terminates at the level of T12-L1, and is unremarkable. Right neural foraminal stenosis: Mild at L1-2. Moderate at L2-3, L3-4, L4-5, and mild at L5-S1. Left neural foraminal stenosis: Moderate at L1-2, L2-3, L3-4, L4-5. Mild at L5-S1. T12-L1: Mild bilateral facet arthropathy. No central canal stenosis. L1-2: Mild bilateral facet arthropathy. Mild disc bulge. No central canal stenosis. L2-3: Moderate bilateral facet arthropathy. Disc bulge. Epidural lipomatosis. Moderate central canal stenosis. L3-4: Disc bulge. Epidural lipomatosis. Moderate bilateral facet arthropathy. Mild to moderate central canal stenosis. L4-5: Severe right, moderate left facet arthropathy. Mild disc bulge. Mild central canal stenosis. L5-S1: Moderate bilateral facet arthropathy. Mild disc bulge. No central canal stenosis. Visualized sacrum is intact. No abdominal aortic aneurysm. Left renal cyst. IMPRESSION: 1. Chronic mild superior endplate fracture of L2, unchanged in vertebral body height in comparison to prior exam. 2. Left lateral disc osteophyte complex at T12-L1, with interval development of marrow edema, favoring degenerative. 3. Multilevel degenerative change of the lumbar spine, most pronounced at L2-3, where there is progressed moderate central canal stenosis and unchanged moderate bilateral neural foraminal stenosis. Dictated by: Marya Shah M.D. on 07/25/2024 at 15:08 Approved by: Marya Shah M.D. on 07/25/2024 at 15:21
== END ==
LOC: MRI 08:54
PROVIDERS: PCP Family Medicine; Referring Provider Neurological Surgery; Visit Provider Neurological Surgery
DX: M84.48XD Pathological fracture, other site, subsequent encounter for fracture with routine healing (principal); M48.02 Spinal stenosis, cervical region
CPT/HCPCS: 72148

== ENCOUNTER → 2024-08-27 15:09 | Outpatient (CLI) | payer OTHER, SELFPAY ==
--- NOTE | 2024-08-27 15:09 | DI.US.S_ITS ---
PROCEDURE: US ABDOMEN LIMITED INDICATIONS: r/o new hernia And patient concern for femoral aneurysm TECHNIQUE: Real-time scanning was performed of the abdomen, with image documentation. COMPARISON: None. FINDINGS: Limited ultrasound examination of right inguinal region shows small fascial defect measures 6 mm in width . The herniation sac contains fat only and is fully reducible. Adjacent right femoral vessels are within normal limits. No aneurysm is seen. IMPRESSION: Small right inguinal hernia containing fat only and is fully reducible as described above. Dictated by: William Cannon M.D. on 08/28/2024 at 8:05 Approved by: William Cannon M.D. on 08/28/2024 at 8:07
== END ==
LOC: US 15:09
PROVIDERS: PCP Family Medicine; Referring Provider Physician Assistant; Visit Provider Physician Assistant
DX: K40.90 Unilateral inguinal hernia, without obstruction or gangrene, not specified as recurrent (principal); Z98.890 Other specified postprocedural states; Z87.19 Personal history of other diseases of the digestive system; R10.31 Right lower quadrant pain
CPT/HCPCS: 76705

== ENCOUNTER 2024-09-05 15:22 | Emergency (ER) | payer OTHER, SELFPAY ==
[2024-09-05 15:27] VITALS: BP 157/88; PULSE 88; RESP 18; TEMP 37; O2SAT 95; BMI 26.6
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
[2024-09-05] MEDS: FLUORESCEIN 1 MG STRIP EYE-RIGHT (18:51)
[2024-09-05 19:05] VITALS: BP 140/86; PULSE 66; RESP 18; TEMP 37.1; O2SAT 99
== END 2024-09-05 19:07 | disposition home or self-care (01) ==
PROVIDERS: Emergency Provider Emergency Medicine; PCP Family Medicine
DX: S09.90XA Unspecified injury of head, initial encounter (principal); S01.111A Laceration without foreign body of right eyelid and periocular area, initial encounter; Y04.2XXA Assault by strike against or bumped into by another person, initial encounter
CPT/HCPCS: 70450; 70486; 99282; 99284

== ENCOUNTER → 2025-04-01 09:14 | Outpatient (CLI) | payer OTHER, SELFPAY ==
[2025-04-01 18:57] LABS: Add Manual Diff / Slide Review NO; Hematocrit 42.7 % (41-53); Hemoglobin 14.7 g/dL (13.5-17.5); Lymphocytes Absolute Auto 1200 /uL (1100-4500); Mean Corpuscular HGB Conc 34.4 % (30-36); Mean Corpuscular Hemoglobin 31.8 PG (26-34); Mean Corpuscular Volume 92.5 fL (80-100); Platelet Count 161 X10^3/uL (150-400)
[2025-04-01 19:08] LABS: Blood Urea Nitrogen 20 mg/dL (9-20); Calcium 9.6 mg/dL (8.4-10.2); Carbon Dioxide 31 mmol/L (22-32); Chloride 100 mmol/L (98-107); Cholesterol 153 mg/dL (140-199); Estimated Glomerular Filt Rate > 60 mL/min (>60); Glucose 97 mg/dL (70-99); HDL Cholesterol 55 mg/dL (40-60); HEMOLYSIS < 15 (0-50); Potassium 4.2 mmol/L (3.4-5.1); Sodium 137 mmol/L (137-145); Triglycerides 56 mg/dL (35-150)
== END ==
PROVIDERS: PCP Family Medicine; Referring Provider Family Medicine; Visit Provider Family Medicine
DX: Z12.5 Encounter for screening for malignant neoplasm of prostate (principal); I10 Essential (primary) hypertension; E83.52 Hypercalcemia; I65.23 Occlusion and stenosis of bilateral carotid arteries; E78.2 Mixed hyperlipidemia
CPT/HCPCS: 80048; 80061; 85025; G0103